=== PATIENT | female | born 1940 | race Caucasian/White ===

== ENCOUNTER 2017-07-26 21:02 | Inpatient (IN) | payer BC, MEDICAID ==
[2017-07-27] MEDS: ALBUTEROL 0.083% (NEB) 2.5 MG/3 ML AMP NEB (00:27)
[2017-07-27] MEDS: IPRATROPIUM (NEB) 0.5 MG/2.5 ML AMP NEB ×2 (00:27→03:36)
[2017-07-27 01:47] LABS: ADD UMIC YES; UR ASCORBIC ACID NEGATIVE (NEGATIVE); UR BACTERIA FEW /HPF (NONE SEEN); UR BILIRUBIN (Dip) NEGATIVE (NEGATIVE); UR BLOOD (Dip) NEGATIVE (NEGATIVE); UR CLARITY CLOUDY (CLEAR); UR COLOR AMBER (YELLOW); UR GLUCOSE (Dip) NEGATIVE (NEGATIVE); UR HYALINE CAST FEW /HPF (NONE SEEN); UR KETONES (Dip) TRACE mg/dL (NEGATIVE); UR LEUKOCYTE ESTERASE (Dip) 2+ Leu/ul (NEGATIVE); UR NITRITE (Dip) NEGATIVE (NEGATIVE); UR NONSQUAMOUS EPITHELIAL CELL 2 /HPF (NONE SEEN); UR RBC 7 /HPF (0-5); UR SPECIFIC GRAVITY (Dip) 1.026 (1.003-1.030); UR SQUAMOUS EPITHELIAL CELL MODERATE /HPF (FEW); UR TOTAL PROTEIN (Dip) 2+ mg/dl (NEGATIVE); UR UROBILINOGEN (Dip) 2+ mg/dL (NEGATIVE); UR WBC 8 /HPF (0-5)
[2017-07-27 02:05] LABS: ADD MAN DIFF? NO
[2017-07-27 02:07] LABS: WHITE BLOOD COUNT 5.5 10^3/ul (4.8-10.8)
[2017-07-27 02:07] LABS: BASOPHILS % 0.2 % (0.0-2.0); EOSINOPHILS # 0.1 10^3/ul (0.0-0.5); EOSINOPHILS % 1.5 % (0.0-7.0); HEMATOCRIT 37.9 % (37.0-47.0); HEMOGLOBIN 12.5 g/dl (12.0-16.0); LYMPHOCYTES # 2.6 10^3/ul (0.8-2.9); LYMPHOCYTES % 48.4 % (15.0-51.0); MEAN CORPUSCULAR HEMOGLOBIN 29.7 pg (29.0-33.0); MEAN PLATELET VOLUME 11.5 fl (7.4-10.4); MONOCYTE # 0.7 10^3/ul (0.3-0.9); MONOCYTES % 11.9 % (0.0-11.0); NEUTROPHIL # 2.1 10^3/ul (1.6-7.5); NEUTROPHILS % 37.6 % (39.0-77.0); PLATELET COUNT 210 10^3/UL (140-415); RED BLOOD COUNT 4.21 10^6/ul (4.20-5.40); RED CELL DISTRIBUTION WIDTH 13.6 % (11.5-14.5)
[2017-07-27] MEDS: ONDANSETRON 4 MG INJ IV (02:13)
[2017-07-27 02:44] LABS: ALANINE AMINOTRANSFERASE 32 IU/L (13-69); ALBUMIN 4.3 g/dl (3.3-4.9); ALBUMIN/GLOBULIN RATIO 1.22; ALKALINE PHOSPHATASE 81 IU/L (42-121); ANION GAP 19 (8-16); ASPARTATE AMINO TRANSFERASE 32 IU/L (15-46); BLOOD UREA NITROGEN 26 mg/dl (7-20); CARBON DIOXIDE 25 mmol/L (21-31); CHLORIDE 103 mmol/L (97-110); CREATININE 1.26 mg/dl (0.44-1.00); GLUCOSE 161 mg/dl (70-220); LIPASE 148 U/L (23-300); POTASSIUM 3.6 mmol/L (3.5-5.1); SODIUM 143 mmol/L (135-144); TOTAL PROTEIN 7.8 g/dl (6.1-8.1)
[2017-07-27 02:56] LABS: B-TYPE NATRIURETIC PEPTIDE 213 PG/ML (0-450); TROPONIN-I 0.013 ng/ml (0.00-0.12)
[2017-07-27] MEDS: CEFTRIAXONE 1 GM/50 ML (PMX) 50 ML IVPB (03:23)
[2017-07-27] MEDS: ALBUTEROL 0.5% (NEB) 2.5 MG/0.5 ML AMP INH (03:35)
[2017-07-27] MEDS: GUAIFENESIN/DM 5ML CUP PO (03:55)
[2017-07-27] MEDS ORDERED: ACETAMINOPHEN 325 MG TAB PO ×2 (06:30→09:30)
[2017-07-27] MEDS ORDERED: ONDANSETRON 4 MG INJ IV ×2 (06:30→09:30)
[2017-07-27] MEDS ORDERED: morphine 2 MG INJ IV (09:30)
[2017-07-27] MEDS ORDERED: NACL 0.9% 3 ML SYG IV (09:30)
[2017-07-27] MEDS: LEVOFLOXACIN 500MG/D5W (PMX) 100 ML IVPB (09:30)
[2017-07-27] MEDS: METHYLPREDNISOLONE 125 MG INJ IV ×2 (11:02→20:24)
[2017-07-27] MEDS: traMADol 50 MG TAB PO (11:02)
[2017-07-27] MEDS: BENZONATATE 100 MG CAP PO (13:25)
[2017-07-27] MEDS: FUROSEMIDE 40 MG INJ IV (13:32)
[2017-07-27] MEDS: SUCRALFATE 1 GM TAB PO ×3 (16:47→21:04)
[2017-07-27] MEDS: GABAPENTIN 300 MG CAP PO (20:23)
[2017-07-27] MEDS: MOMETASONE 0.24 GM INHALER INH (20:24)
[2017-07-28 06:22] LABS: ADD MAN DIFF? NO
[2017-07-28 06:31] LABS: HEMATOCRIT 37.2 % (37.0-47.0); LYMPHOCYTES % 34.8 % (15.0-51.0); MEAN CORPUSCULAR HEMOGLOBIN 29.3 pg (29.0-33.0); MEAN CORPUSCULAR HGB CONC 32.3 g/dl (32.0-37.0); MEAN CORPUSCULAR VOLUME 90.7 fl (82.0-101.0); MEAN PLATELET VOLUME 11.1 fl (7.4-10.4); MONOCYTE # 0.2 10^3/ul (0.3-0.9); NEUTROPHIL # 1.7 10^3/ul (1.6-7.5); NEUTROPHILS % 56.9 % (39.0-77.0); PLATELET COUNT 185 10^3/UL (140-415); RED CELL DISTRIBUTION WIDTH 13.3 % (11.5-14.5)
[2017-07-28] MEDS: BENZONATATE 100 MG CAP PO ×2 (06:46→21:01)
[2017-07-28 07:13] LABS: ALANINE AMINOTRANSFERASE 22 IU/L (13-69); ALBUMIN 4.1 g/dl (3.3-4.9); ALBUMIN/GLOBULIN RATIO 1.36; ALKALINE PHOSPHATASE 64 IU/L (42-121); ANION GAP 19 (8-16); ASPARTATE AMINO TRANSFERASE 27 IU/L (15-46); BILIRUBIN,INDIRECT 0.1 mg/dl (0-1.1); BILIRUBIN,TOTAL 0.1 mg/dl (0.2-1.3); BLOOD UREA NITROGEN 34 mg/dl (7-20); CALCIUM 8.9 mg/dl (8.4-10.2); CARBON DIOXIDE 26 mmol/L (21-31); CHLORIDE 98 mmol/L (97-110); CREATININE 1.09 mg/dl (0.44-1.00); GLUCOSE 247 mg/dl (70-220); MAGNESIUM 1.9 mg/dl (1.7-2.5); PHOSPHORUS 4.3 mg/dl (2.5-4.9); POTASSIUM 4.4 mmol/L (3.5-5.1); SODIUM 139 mmol/L (135-144); TOTAL PROTEIN 7.1 g/dl (6.1-8.1)
[2017-07-28 08:07] LABS: HEMOGLOBIN A1C 7.5 % (0-5.9)
[2017-07-28] MEDS: MOMETASONE 0.24 GM INHALER INH (09:49)
[2017-07-28] MEDS: METHYLPREDNISOLONE 125 MG INJ IV ×2 (09:49→20:42)
[2017-07-28] MEDS: FUROSEMIDE 40 MG INJ IV (09:50)
[2017-07-28] MEDS: LINAGLIPTIN 5 MG TABLET PO (09:50)
[2017-07-28] MEDS: SUCRALFATE 1 GM TAB PO ×4 (09:50→20:42)
[2017-07-28] MEDS: GABAPENTIN 300 MG CAP PO ×2 (09:50→20:42)
[2017-07-28] MEDS: LEVOFLOXACIN 250MG/D5W (PMX) 50 ML IVPB (09:50)
[2017-07-28] MEDS: ASPIRIN (EC) 81 MG TAB PO (09:51)
[2017-07-28] MEDS: PANTOPRAZOLE (EC) 40 MG TAB PO (09:51)
[2017-07-28] MEDS: RIVAROXABAN 20 MG TABLET PO (10:45)
[2017-07-28] MEDS ORDERED: GLUCAGON 1 MG INJ IM (11:30)
[2017-07-28] MEDS ORDERED: DEXTROSE 50% 50 ML SYRINGE IV ×2 (11:30)
[2017-07-28] MEDS ORDERED: GLUCOSE GEL 15 GRAM TUBE BUCCAL (11:30)
[2017-07-28] MEDS ORDERED: GLUCOSE GEL 15 GRAM TUBE PO ×2 (11:30)
[2017-07-28] MEDS: INSULIN ASPART [NOVOLOG] 3 ML PEN SC ×5 (12:40→20:47)
[2017-07-28] MEDS: INSULIN GLARGINE [LANtus] 3 ML PEN SC (12:40)
[2017-07-28] MEDS: LACTULOSE 30ML CUP PO (20:41)
[2017-07-29] MEDS: ACCU-CHEK XX (02:00)
[2017-07-29] MEDS: INSULIN GLARGINE [LANtus] 3 ML PEN SC (08:06)
[2017-07-29] MEDS: INSULIN ASPART [NOVOLOG] 3 ML PEN SC ×7 (08:07→21:00)
[2017-07-29] MEDS: METHYLPREDNISOLONE 125 MG INJ IV ×2 (08:24→21:21)
[2017-07-29] MEDS: GABAPENTIN 300 MG CAP PO ×2 (08:25→21:21)
[2017-07-29] MEDS: SUCRALFATE 1 GM TAB PO ×4 (08:25→21:21)
[2017-07-29] MEDS: LINAGLIPTIN 5 MG TABLET PO (08:25)
[2017-07-29] MEDS: ASPIRIN (EC) 81 MG TAB PO (08:25)
[2017-07-29] MEDS: RIVAROXABAN 20 MG TABLET PO (08:25)
[2017-07-29] MEDS: FUROSEMIDE 40 MG INJ IV (08:25)
[2017-07-29] MEDS: PANTOPRAZOLE (EC) 40 MG TAB PO (08:25)
[2017-07-29] MEDS: MOMETASONE 0.24 GM INHALER INH (08:27)
[2017-07-29] MEDS: BENZONATATE 100 MG CAP PO (08:50)
[2017-07-29] MEDS: LEVOFLOXACIN 250MG/D5W (PMX) 50 ML IVPB (09:38)
[2017-07-29] MEDS: GUAIFENESIN/CODEINE 5ML CUP PO (15:53)
[2017-07-29] MEDS: GUAIFENESIN LA 600 MG TABSR PO ×2 (17:46→21:21)
[2017-07-29] MEDS: ALBUTEROL/IPRATROPIUM (NEB) 3 ML AMP HHN (21:15)
[2017-07-30] MEDS: ACCU-CHEK XX (01:11)
[2017-07-30] MEDS: GUAIFENESIN/CODEINE 5ML CUP PO ×2 (05:37→15:34)
[2017-07-30] MEDS: SUCRALFATE 1 GM TAB PO ×4 (08:16→21:27)
[2017-07-30] MEDS: BENZONATATE 100 MG CAP PO ×2 (08:16→17:30)
[2017-07-30] MEDS: FUROSEMIDE 40 MG INJ IV (08:16)
[2017-07-30] MEDS: RIVAROXABAN 20 MG TABLET PO (08:16)
[2017-07-30] MEDS: GABAPENTIN 300 MG CAP PO ×2 (08:16→21:27)
[2017-07-30] MEDS: PANTOPRAZOLE (EC) 40 MG TAB PO (08:16)
[2017-07-30] MEDS: LINAGLIPTIN 5 MG TABLET PO (08:17)
[2017-07-30] MEDS: MOMETASONE 0.24 GM INHALER INH (08:17)
[2017-07-30] MEDS: GUAIFENESIN LA 600 MG TABSR PO ×2 (08:17→21:27)
[2017-07-30] MEDS: ASPIRIN (EC) 81 MG TAB PO (08:17)
[2017-07-30] MEDS: METHYLPREDNISOLONE 125 MG INJ IV ×2 (08:17→21:27)
[2017-07-30] MEDS: INSULIN GLARGINE [LANtus] 3 ML PEN SC (08:41)
[2017-07-30] MEDS: INSULIN ASPART [NOVOLOG] 3 ML PEN SC ×7 (08:41→21:00)
[2017-07-30] MEDS: LEVOFLOXACIN 250MG/D5W (PMX) 50 ML IVPB (11:35)
[2017-07-30] MEDS: MAGNESIUM HYDROXIDE 30ML CUP PO (15:34)
[2017-07-30] MEDS: SENNA TAB PO (15:34)
[2017-07-30] MEDS: ERTAPENEM SODIUM 1 GM in SOD CHLORIDE 0.9% 100 ML IVPB (15:34)
[2017-07-30] MEDS: FLUCONAZOLE 200 MG TAB PO (15:34)
[2017-07-30] MEDS: DOCUSATE SODIUM 100 MG CAP PO (15:34)
[2017-07-30] MEDS: HEPARIN 5,000 UNIT/0.5 ML VIAL SC (21:36)
[2017-07-31] MEDS: ACCU-CHEK XX (01:57)
[2017-07-31] MEDS: FLUCONAZOLE 200 MG TAB PO (08:33)
[2017-07-31] MEDS: SUCRALFATE 1 GM TAB PO ×4 (08:33→20:39)
[2017-07-31] MEDS: LINAGLIPTIN 5 MG TABLET PO (08:33)
[2017-07-31] MEDS: DOCUSATE SODIUM 100 MG CAP PO ×2 (08:33→20:39)
[2017-07-31] MEDS: GABAPENTIN 300 MG CAP PO ×2 (08:33→20:39)
[2017-07-31] MEDS: SENNA TAB PO ×2 (08:33→20:40)
[2017-07-31] MEDS: GUAIFENESIN LA 600 MG TABSR PO ×2 (08:33→20:40)
[2017-07-31] MEDS: PANTOPRAZOLE (EC) 40 MG TAB PO (08:33)
[2017-07-31] MEDS: ASPIRIN (EC) 81 MG TAB PO (08:33)
[2017-07-31] MEDS: METHYLPREDNISOLONE 125 MG INJ IV ×2 (08:34→20:41)
[2017-07-31] MEDS: MOMETASONE 0.24 GM INHALER INH (08:35)
[2017-07-31] MEDS: FUROSEMIDE 40 MG INJ IV (08:35)
[2017-07-31] MEDS: HEPARIN 5,000 UNIT/0.5 ML VIAL SC ×2 (08:37→20:54)
[2017-07-31] MEDS: INSULIN GLARGINE [LANtus] 3 ML PEN SC (08:37)
[2017-07-31] MEDS: INSULIN ASPART [NOVOLOG] 3 ML PEN SC ×7 (08:38→20:46)
[2017-07-31] MEDS: ERTAPENEM SODIUM 1 GM in SOD CHLORIDE 0.9% 100 ML IVPB (16:52)
[2017-08-01] MEDS: ACCU-CHEK XX (02:12)
[2017-08-01] MEDS: INSULIN ASPART [NOVOLOG] 3 ML PEN SC ×7 (07:58→20:43)
[2017-08-01] MEDS: INSULIN GLARGINE [LANtus] 3 ML PEN SC (07:59)
[2017-08-01] MEDS: FUROSEMIDE 40 MG INJ IV (09:51)
[2017-08-01] MEDS: METHYLPREDNISOLONE 125 MG INJ IV ×2 (09:52→20:39)
[2017-08-01] MEDS: PANTOPRAZOLE (EC) 40 MG TAB PO (09:53)
[2017-08-01] MEDS: GUAIFENESIN LA 600 MG TABSR PO ×2 (09:53→20:44)
[2017-08-01] MEDS: SUCRALFATE 1 GM TAB PO ×4 (09:53→20:44)
[2017-08-01] MEDS: ASPIRIN (EC) 81 MG TAB PO (09:53)
[2017-08-01] MEDS: DOCUSATE SODIUM 100 MG CAP PO ×2 (09:53→20:44)
[2017-08-01] MEDS: GABAPENTIN 300 MG CAP PO ×2 (09:53→20:39)
[2017-08-01] MEDS: SENNA TAB PO ×2 (09:54→20:43)
[2017-08-01] MEDS: FLUCONAZOLE 200 MG TAB PO (09:54)
[2017-08-01] MEDS: LINAGLIPTIN 5 MG TABLET PO (09:54)
[2017-08-01] MEDS: MOMETASONE 0.24 GM INHALER INH (09:55)
[2017-08-01] MEDS: HEPARIN 5,000 UNIT/0.5 ML VIAL SC ×3 (10:06→21:44)
[2017-08-01] MEDS: AZITHROMYCIN 250 MG TAB PO (14:52)
[2017-08-01] MEDS: ERTAPENEM SODIUM 1 GM in SOD CHLORIDE 0.9% 100 ML IVPB (15:58)
[2017-08-01] MEDS: NPH, HUMAN INSULIN ISOPHANE 3ML VIAL SC (20:41)
[2017-08-02] MEDS: ACCU-CHEK XX (01:30)
[2017-08-02] MEDS: HEPARIN 5,000 UNIT/0.5 ML VIAL SC ×3 (05:44→21:06)
[2017-08-02 06:02] LABS: ADD MAN DIFF? NO
[2017-08-02 06:06] LABS: WHITE BLOOD COUNT 11.9 10^3/ul (4.8-10.8)
[2017-08-02 06:06] LABS: BASOPHILS % 0.1 % (0.0-2.0); HEMATOCRIT 39.5 % (37.0-47.0); LYMPHOCYTES # 1.2 10^3/ul (0.8-2.9); LYMPHOCYTES % 10.1 % (15.0-51.0); MEAN CORPUSCULAR HEMOGLOBIN 29.5 pg (29.0-33.0); MEAN CORPUSCULAR HGB CONC 32.9 g/dl (32.0-37.0); MEAN CORPUSCULAR VOLUME 89.6 fl (82.0-101.0); MEAN PLATELET VOLUME 10.7 fl (7.4-10.4); MONOCYTE # 0.4 10^3/ul (0.3-0.9); MONOCYTES % 3.4 % (0.0-11.0); NEUTROPHIL # 10.2 10^3/ul (1.6-7.5); NEUTROPHILS % 85.6 % (39.0-77.0); PLATELET COUNT 269 10^3/UL (140-415); RED BLOOD COUNT 4.41 10^6/ul (4.20-5.40); RED CELL DISTRIBUTION WIDTH 12.9 % (11.5-14.5)
[2017-08-02 06:32] LABS: CHOLESTEROL 195 mg/dl (100-200); HDL CHOLESTEROL 64 mg/dl (33-92); LDL CHOLESTEROL,CALCULATED 109 mg/dl; MAGNESIUM 2.5 mg/dl (1.7-2.5); TRIGLYCERIDES 111 mg/dl (0-149)
[2017-08-02 06:32] LABS: PHOSPHORUS 4.4 mg/dl (2.5-4.9)
[2017-08-02 06:33] LABS: ANION GAP 13 (8-16); BLOOD UREA NITROGEN 54 mg/dl (7-20); CALCIUM 8.3 mg/dl (8.4-10.2); CARBON DIOXIDE 32 mmol/L (21-31); CHLORIDE 96 mmol/L (97-110); CREATININE 1.02 mg/dl (0.44-1.00); GLUCOSE 211 mg/dl (70-220); POTASSIUM 4.2 mmol/L (3.5-5.1); SODIUM 137 mmol/L (135-144)
[2017-08-02] MEDS: SUCRALFATE 1 GM TAB PO ×4 (07:50→21:04)
[2017-08-02] MEDS: INSULIN GLARGINE [LANtus] 3 ML PEN SC (07:59)
[2017-08-02] MEDS: INSULIN ASPART [NOVOLOG] 3 ML PEN SC ×7 (07:59→21:11)
[2017-08-02] MEDS: METHYLPREDNISOLONE 125 MG INJ IV (09:46)
[2017-08-02] MEDS: SENNA TAB PO ×2 (09:46→21:04)
[2017-08-02] MEDS: PANTOPRAZOLE (EC) 40 MG TAB PO (09:47)
[2017-08-02] MEDS: DOCUSATE SODIUM 100 MG CAP PO ×2 (09:47→21:04)
[2017-08-02] MEDS: AZITHROMYCIN 250 MG TAB PO (09:47)
[2017-08-02] MEDS: FLUCONAZOLE 200 MG TAB PO (09:47)
[2017-08-02] MEDS: GABAPENTIN 300 MG CAP PO ×2 (09:48→21:04)
[2017-08-02] MEDS: LINAGLIPTIN 5 MG TABLET PO (09:48)
[2017-08-02] MEDS: GUAIFENESIN LA 600 MG TABSR PO ×2 (09:48→21:03)
[2017-08-02] MEDS: ASPIRIN (EC) 81 MG TAB PO (09:48)
[2017-08-02] MEDS: NPH, HUMAN INSULIN ISOPHANE 3ML VIAL SC ×2 (09:52→21:10)
[2017-08-02] MEDS: MOMETASONE 0.24 GM INHALER INH (09:58)
[2017-08-02] MEDS: FUROSEMIDE 20 MG TAB PO (12:11)
[2017-08-02] MEDS: ERTAPENEM SODIUM 1 GM in SOD CHLORIDE 0.9% 100 ML IVPB (16:59)
[2017-08-02] MEDS: METHYLPREDNISOLONE 40 MG INJ IV (21:05)
[2017-08-03] MEDS: ACCU-CHEK XX (02:53)
[2017-08-03 05:32] LABS: ADD MAN DIFF? NO
[2017-08-03 05:37] LABS: BASOPHILS % 0.1 % (0.0-2.0); HEMATOCRIT 40.4 % (37.0-47.0); HEMOGLOBIN 13.1 g/dl (12.0-16.0); LYMPHOCYTES # 1.4 10^3/ul (0.8-2.9); LYMPHOCYTES % 10.4 % (15.0-51.0); MEAN CORPUSCULAR HEMOGLOBIN 29.2 pg (29.0-33.0); MEAN CORPUSCULAR HGB CONC 32.4 g/dl (32.0-37.0); MEAN CORPUSCULAR VOLUME 90.2 fl (82.0-101.0); MEAN PLATELET VOLUME 10.5 fl (7.4-10.4); MONOCYTE # 0.4 10^3/ul (0.3-0.9); NEUTROPHIL # 11.3 10^3/ul (1.6-7.5); NEUTROPHILS % 85.4 % (39.0-77.0); PLATELET COUNT 293 10^3/UL (140-415); RED BLOOD COUNT 4.48 10^6/ul (4.20-5.40); RED CELL DISTRIBUTION WIDTH 12.9 % (11.5-14.5)
[2017-08-03 05:37] LABS: WHITE BLOOD COUNT 13.3 10^3/ul (4.8-10.8)
[2017-08-03] MEDS: HEPARIN 5,000 UNIT/0.5 ML VIAL SC ×3 (06:05→21:36)
[2017-08-03 06:08] LABS: ANION GAP 9 (8-16); BLOOD UREA NITROGEN 50 mg/dl (7-20); CALCIUM 8.8 mg/dl (8.4-10.2); CARBON DIOXIDE 33 mmol/L (21-31); CHLORIDE 98 mmol/L (97-110); GLUCOSE 158 mg/dl (70-220); MAGNESIUM 2.6 mg/dl (1.7-2.5); POTASSIUM 4.4 mmol/L (3.5-5.1); SODIUM 136 mmol/L (135-144)
[2017-08-03 06:08] LABS: PHOSPHORUS 4.3 mg/dl (2.5-4.9)
[2017-08-03] MEDS: INSULIN ASPART [NOVOLOG] 3 ML PEN SC ×7 (07:59→21:35)
[2017-08-03] MEDS: INSULIN GLARGINE [LANtus] 3 ML PEN SC (08:05)
[2017-08-03] MEDS: GABAPENTIN 300 MG CAP PO ×2 (09:42→21:27)
[2017-08-03] MEDS: FUROSEMIDE 20 MG TAB PO (09:43)
[2017-08-03] MEDS: PANTOPRAZOLE (EC) 40 MG TAB PO (09:43)
[2017-08-03] MEDS: ASPIRIN (EC) 81 MG TAB PO (09:43)
[2017-08-03] MEDS: GUAIFENESIN LA 600 MG TABSR PO ×2 (09:45→21:27)
[2017-08-03] MEDS: SENNA TAB PO ×2 (09:45→21:27)
[2017-08-03] MEDS: AZITHROMYCIN 250 MG TAB PO (09:45)
[2017-08-03] MEDS: SUCRALFATE 1 GM TAB PO ×4 (09:46→21:27)
[2017-08-03] MEDS: LINAGLIPTIN 5 MG TABLET PO (09:46)
[2017-08-03] MEDS: FLUCONAZOLE 200 MG TAB PO (09:46)
[2017-08-03] MEDS: DOCUSATE SODIUM 100 MG CAP PO ×2 (09:46→21:27)
[2017-08-03] MEDS: METHYLPREDNISOLONE 40 MG INJ IV ×2 (09:47→21:27)
[2017-08-03] MEDS: MOMETASONE 0.24 GM INHALER INH (09:47)
[2017-08-03] MEDS: NPH, HUMAN INSULIN ISOPHANE 3ML VIAL SC ×2 (10:06→21:35)
[2017-08-03] MEDS: LISINOPRIL 5 MG TAB PO (11:17)
[2017-08-03] MEDS: ACETYLCYSTEINE 20% 4 ML VIAL NEB ×2 (14:08→20:22)
[2017-08-03] MEDS: ALBUTEROL/IPRATROPIUM (NEB) 3 ML AMP HHN ×2 (14:08→20:21)
[2017-08-03] MEDS: SOD CHLORIDE 0.9% IVPB (16:30)
[2017-08-03] MEDS: ERTAPENEM SODIUM IVPB (16:30)
[2017-08-04] MEDS: ACETYLCYSTEINE 20% 4 ML VIAL NEB ×4 (01:05→19:47)
[2017-08-04] MEDS: ALBUTEROL/IPRATROPIUM (NEB) 3 ML AMP HHN ×4 (01:05→19:47)
[2017-08-04] MEDS: ACCU-CHEK XX (02:00)
[2017-08-04 06:01] LABS: ADD MAN DIFF? NO
[2017-08-04] MEDS: HEPARIN 5,000 UNIT/0.5 ML VIAL SC ×3 (06:06→21:16)
[2017-08-04 06:12] LABS: WHITE BLOOD COUNT 13.2 10^3/ul (4.8-10.8)
[2017-08-04 06:12] LABS: BASOPHILS % 0.2 % (0.0-2.0); HEMOGLOBIN 11.9 g/dl (12.0-16.0); LYMPHOCYTES # 0.7 10^3/ul (0.8-2.9); LYMPHOCYTES % 5.4 % (15.0-51.0); MEAN CORPUSCULAR HEMOGLOBIN 29.6 pg (29.0-33.0); MEAN CORPUSCULAR HGB CONC 33.1 g/dl (32.0-37.0); MEAN CORPUSCULAR VOLUME 89.6 fl (82.0-101.0); MEAN PLATELET VOLUME 10.6 fl (7.4-10.4); MONOCYTE # 0.4 10^3/ul (0.3-0.9); MONOCYTES % 2.8 % (0.0-11.0); NEUTROPHIL # 11.9 10^3/ul (1.6-7.5); NEUTROPHILS % 89.8 % (39.0-77.0); PLATELET COUNT 264 10^3/UL (140-415); RED BLOOD COUNT 4.02 10^6/ul (4.20-5.40); RED CELL DISTRIBUTION WIDTH 13.2 % (11.5-14.5)
[2017-08-04 06:35] LABS: ANION GAP 12 (8-16); BLOOD UREA NITROGEN 45 mg/dl (7-20); CARBON DIOXIDE 29 mmol/L (21-31); CHLORIDE 97 mmol/L (97-110); CREATININE 0.99 mg/dl (0.44-1.00); GLUCOSE 301 mg/dl (70-220); POTASSIUM 4.3 mmol/L (3.5-5.1); SODIUM 134 mmol/L (135-144)
[2017-08-04 06:48] LABS: MAGNESIUM 2.5 mg/dl (1.7-2.5)
[2017-08-04 06:48] LABS: PHOSPHORUS 4.3 mg/dl (2.5-4.9)
[2017-08-04] MEDS: SUCRALFATE 1 GM TAB PO ×4 (08:00→21:14)
[2017-08-04] MEDS: MOMETASONE 0.24 GM INHALER INH (08:02)
[2017-08-04] MEDS: INSULIN ASPART [NOVOLOG] 3 ML PEN SC ×8 (08:18→21:16)
[2017-08-04] MEDS: INSULIN GLARGINE [LANtus] 3 ML PEN SC (08:19)
[2017-08-04] MEDS: DOCUSATE SODIUM 100 MG CAP PO ×2 (09:41→21:14)
[2017-08-04] MEDS: PANTOPRAZOLE (EC) 40 MG TAB PO (09:42)
[2017-08-04] MEDS: ASPIRIN (EC) 81 MG TAB PO (09:42)
[2017-08-04] MEDS: LINAGLIPTIN 5 MG TABLET PO (09:42)
[2017-08-04] MEDS: LISINOPRIL 5 MG TAB PO (09:42)
[2017-08-04] MEDS: FUROSEMIDE 20 MG TAB PO (09:43)
[2017-08-04] MEDS: FLUCONAZOLE 200 MG TAB PO (09:43)
[2017-08-04] MEDS: GUAIFENESIN LA 600 MG TABSR PO ×2 (09:43→21:15)
[2017-08-04] MEDS: SENNA TAB PO ×2 (09:44→21:15)
[2017-08-04] MEDS: AZITHROMYCIN 250 MG TAB PO (09:44)
[2017-08-04] MEDS: GABAPENTIN 300 MG CAP PO ×2 (09:44→21:14)
[2017-08-04] MEDS: METHYLPREDNISOLONE 40 MG INJ IV (09:47)
[2017-08-04] MEDS: NPH, HUMAN INSULIN ISOPHANE 3ML VIAL SC (09:47)
[2017-08-04] MEDS: ERTAPENEM SODIUM IVPB (16:08)
[2017-08-04] MEDS: SOD CHLORIDE 0.9% IVPB (16:08)
[2017-08-04] MEDS: metFORMIN 850 MG TAB PO (21:57)
[2017-08-05] MEDS: ACETYLCYSTEINE 20% 4 ML VIAL NEB ×3 (01:31→13:56)
[2017-08-05] MEDS: ALBUTEROL/IPRATROPIUM (NEB) 3 ML AMP HHN ×3 (01:32→13:44)
[2017-08-05] MEDS: ACCU-CHEK XX (02:00)
[2017-08-05] MEDS: HEPARIN 5,000 UNIT/0.5 ML VIAL SC ×2 (05:46→14:09)
[2017-08-05 05:53] LABS: ADD MAN DIFF? NO
[2017-08-05 05:55] LABS: BASOPHILS % 0.2 % (0.0-2.0); EOSINOPHILS # 0.1 10^3/ul (0.0-0.5); EOSINOPHILS % 0.4 % (0.0-7.0); HEMATOCRIT 34.8 % (37.0-47.0); HEMOGLOBIN 11.5 g/dl (12.0-16.0); LYMPHOCYTES # 3.2 10^3/ul (0.8-2.9); LYMPHOCYTES % 22.7 % (15.0-51.0); MEAN CORPUSCULAR HEMOGLOBIN 29.6 pg (29.0-33.0); MEAN CORPUSCULAR VOLUME 89.7 fl (82.0-101.0); MEAN PLATELET VOLUME 10.4 fl (7.4-10.4); MONOCYTE # 1.1 10^3/ul (0.3-0.9); MONOCYTES % 7.7 % (0.0-11.0); NEUTROPHIL # 9.4 10^3/ul (1.6-7.5); NEUTROPHILS % 66.3 % (39.0-77.0); PLATELET COUNT 262 10^3/UL (140-415); RED BLOOD COUNT 3.88 10^6/ul (4.20-5.40); RED CELL DISTRIBUTION WIDTH 13.2 % (11.5-14.5)
[2017-08-05 05:55] LABS: WHITE BLOOD COUNT 14.2 10^3/ul (4.8-10.8)
[2017-08-05 06:23] LABS: ANION GAP 8 (8-16); BLOOD UREA NITROGEN 44 mg/dl (7-20); CALCIUM 8.5 mg/dl (8.4-10.2); CARBON DIOXIDE 34 mmol/L (21-31); CHLORIDE 99 mmol/L (97-110); CREATININE 0.95 mg/dl (0.44-1.00); GLUCOSE 76 mg/dl (70-220); POTASSIUM 3.7 mmol/L (3.5-5.1); SODIUM 137 mmol/L (135-144)
[2017-08-05 06:51] LABS: MAGNESIUM 2.3 mg/dl (1.7-2.5)
[2017-08-05 06:51] LABS: PHOSPHORUS 3.6 mg/dl (2.5-4.9)
[2017-08-05] MEDS: INSULIN ASPART [NOVOLOG] 3 ML PEN SC ×6 (07:44→17:43)
[2017-08-05] MEDS: GUAIFENESIN/CODEINE 5ML CUP PO (07:54)
[2017-08-05] MEDS: GABAPENTIN 300 MG CAP PO (08:08)
[2017-08-05] MEDS: predniSONE 20 MG TAB PO (08:08)
[2017-08-05] MEDS: SUCRALFATE 1 GM TAB PO ×3 (08:08→17:38)
[2017-08-05] MEDS: LISINOPRIL 5 MG TAB PO (08:08)
[2017-08-05] MEDS: FUROSEMIDE 20 MG TAB PO (08:08)
[2017-08-05] MEDS: GUAIFENESIN LA 600 MG TABSR PO (08:09)
[2017-08-05] MEDS: FLUCONAZOLE 200 MG TAB PO (08:09)
[2017-08-05] MEDS: metFORMIN 850 MG TAB PO ×2 (08:09→17:38)
[2017-08-05] MEDS: SENNA TAB PO (08:10)
[2017-08-05] MEDS: DOCUSATE SODIUM 100 MG CAP PO (08:10)
[2017-08-05] MEDS: LINAGLIPTIN 5 MG TABLET PO (08:10)
[2017-08-05] MEDS: PANTOPRAZOLE (EC) 40 MG TAB PO (08:10)
[2017-08-05] MEDS: AZITHROMYCIN 250 MG TAB PO (08:10)
[2017-08-05] MEDS: ASPIRIN (EC) 81 MG TAB PO (08:10)
[2017-08-05] MEDS: MOMETASONE 0.24 GM INHALER INH (08:11)
[2017-08-05] MEDS: INSULIN GLARGINE [LANtus] 3 ML PEN SC (08:17)
[2017-08-05] MEDS: BISACODYL (EC) 5 MG TAB PO (14:06)
[2017-08-05] MEDS: traMADol 50 MG TAB PO (15:57)
[2017-08-05] MEDS: MAGNESIUM HYDROXIDE 30ML CUP PO (15:59)
[2017-08-05] MEDS: ERTAPENEM SODIUM IVPB (17:40)
[2017-08-05] MEDS: SOD CHLORIDE 0.9% IVPB (17:40)
== END 2017-08-05 19:25 | disposition home or self-care (01) | DRG 202 ==
LOC: MS2 07-27 06:11 → FTE 21:02
PROC: CB121ZZ Planar Nuclear Medicine Imaging of Lungs and Bronchi using Technetium 99m (Tc-99m) (ICD-10-PCS; principal; 2017-07-27)
DX: J45.901 Unspecified asthma with (acute) exacerbation (principal); J96.01 Acute respiratory failure with hypoxia; N17.9 Acute kidney failure, unspecified; J90 Pleural effusion, not elsewhere classified; N39.0 Urinary tract infection, site not specified; R65.10 Systemic inflammatory response syndrome (SIRS) of non-infectious origin without acute organ dysfunction; E11.9 Type 2 diabetes mellitus without complications; I10 Essential (primary) hypertension; B37.49 Other urogenital candidiasis; Z86.711 Personal history of pulmonary embolism; Z86.718 Personal history of other venous thrombosis and embolism; Z79.01 Long term (current) use of anticoagulants; B96.20 Unspecified Escherichia coli [E. coli] as the cause of diseases classified elsewhere
CPT/HCPCS: 36415; 71045; 74176; 80048; 80053; 80061; 81001; 82962; 83036; 83690; 83735; 83880; 84100; 84484; 85025; 87040; 87070; 87086; 87400; 93005; 93970; 94640; 94664; 96365; 96375; 96376; 97110; 97116; 97162; 97530; 99285-25

== ENCOUNTER 2017-10-21 18:41 | Emergency (ER) | payer BC, MEDICAID ==
[2017-10-21] MEDS: SOD CHLORIDE 0.9% 500 ML IV (20:49)
[2017-10-21] MEDS: ALBUTEROL 0.083% (NEB) 2.5 MG/3 ML AMP NEB (20:57)
[2017-10-21] MEDS: IPRATROPIUM (NEB) 0.5 MG/2.5 ML AMP NEB (20:57)
[2017-10-21 21:08] LABS: ADD MAN DIFF? NO
[2017-10-21 21:10] LABS: BASOPHILS % 0.3 % (0.0-2.0); EOSINOPHILS # 0.2 10^3/ul (0.0-0.5); EOSINOPHILS % 2.3 % (0.0-7.0); HEMATOCRIT 35.8 % (37.0-47.0); HEMOGLOBIN 11.8 g/dl (12.0-16.0); LYMPHOCYTES # 2.5 10^3/ul (0.8-2.9); LYMPHOCYTES % 26.1 % (15.0-51.0); MEAN CORPUSCULAR HEMOGLOBIN 29.6 pg (29.0-33.0); MEAN CORPUSCULAR VOLUME 89.7 fl (82.0-101.0); MEAN PLATELET VOLUME 10.3 fl (7.4-10.4); MONOCYTE # 0.8 10^3/ul (0.3-0.9); MONOCYTES % 8.2 % (0.0-11.0); NEUTROPHILS % 62.5 % (39.0-77.0); PLATELET COUNT 257 10^3/UL (140-415); RED BLOOD COUNT 3.99 10^6/ul (4.20-5.40); RED CELL DISTRIBUTION WIDTH 13.3 % (11.5-14.5)
[2017-10-21 21:10] LABS: WHITE BLOOD COUNT 9.6 10^3/ul (4.8-10.8)
[2017-10-21 21:26] LABS: ADD UMIC YES; UR ASCORBIC ACID NEGATIVE (NEGATIVE); UR BILIRUBIN (Dip) NEGATIVE (NEGATIVE); UR BLOOD (Dip) NEGATIVE (NEGATIVE); UR CLARITY CLEAR (CLEAR); UR COLOR YELLOW (YELLOW); UR GLUCOSE (Dip) NEGATIVE (NEGATIVE); UR KETONES (Dip) NEGATIVE (NEGATIVE); UR LEUKOCYTE ESTERASE (Dip) 1+ Leu/ul (NEGATIVE); UR NITRITE (Dip) NEGATIVE (NEGATIVE); UR RBC 1 /HPF (0-5); UR SPECIFIC GRAVITY (Dip) 1.028 (1.003-1.030); UR SQUAMOUS EPITHELIAL CELL FEW /HPF (FEW); UR TOTAL PROTEIN (Dip) 1+ mg/dl (NEGATIVE); UR UROBILINOGEN (Dip) 1+ mg/dL (NEGATIVE); UR WBC 1 /HPF (0-5)
[2017-10-21 21:28] LABS: ANION GAP 17 (8-16); BLOOD UREA NITROGEN 29 mg/dl (7-20); CARBON DIOXIDE 28 mmol/L (21-31); CHLORIDE 102 mmol/L (97-110); GLUCOSE 135 mg/dl (70-220); SODIUM 143 mmol/L (135-144)
[2017-10-22] MEDS: AZITHROMYCIN 250 MG TAB PO (00:30)
[2017-10-22] MEDS: DEXAMETHASONE 10 MG/ML 1 ML INJ IV (00:30)
== END 2017-10-22 00:45 | disposition home or self-care (01) ==
LOC: FTE 10-22 00:45
DX: J45.901 Unspecified asthma with (acute) exacerbation (principal); I10 Essential (primary) hypertension; E11.9 Type 2 diabetes mellitus without complications; Z87.891 Personal history of nicotine dependence; Z79.82 Long term (current) use of aspirin; Z79.84 Long term (current) use of oral hypoglycemic drugs
CPT/HCPCS: 36415; 71046; 80048; 81001; 85025; 93005; 94664; 96361; 96374; 99285-25

== ENCOUNTER 2017-10-29 10:00 | Emergency (ER) | payer BC, MEDICAID ==
[2017-10-29 12:17] LABS: ADD MAN DIFF? NO
[2017-10-29 12:19] LABS: BASOPHILS % 0.2 % (0.0-2.0); EOSINOPHILS # 0.3 10^3/ul (0.0-0.5); HEMATOCRIT 36.7 % (37.0-47.0); HEMOGLOBIN 12.3 g/dl (12.0-16.0); LYMPHOCYTES # 2.8 10^3/ul (0.8-2.9); LYMPHOCYTES % 20.8 % (15.0-51.0); MEAN CORPUSCULAR HEMOGLOBIN 29.6 pg (29.0-33.0); MEAN CORPUSCULAR HGB CONC 33.5 g/dl (32.0-37.0); MEAN CORPUSCULAR VOLUME 88.2 fl (82.0-101.0); MEAN PLATELET VOLUME 9.7 fl (7.4-10.4); MONOCYTE # 0.7 10^3/ul (0.3-0.9); MONOCYTES % 5.5 % (0.0-11.0); NEUTROPHIL # 9.3 10^3/ul (1.6-7.5); NEUTROPHILS % 70.1 % (39.0-77.0); PLATELET COUNT 354 10^3/UL (140-415); RED BLOOD COUNT 4.16 10^6/ul (4.20-5.40); RED CELL DISTRIBUTION WIDTH 13.4 % (11.5-14.5)
[2017-10-29 12:19] LABS: WHITE BLOOD COUNT 13.2 10^3/ul (4.8-10.8)
[2017-10-29] MEDS: IPRATROPIUM (NEB) 0.5 MG/2.5 ML AMP INH (12:21)
[2017-10-29] MEDS: ALBUTEROL 0.083% (NEB) 2.5 MG/3 ML AMP INH (12:21)
[2017-10-29 12:36] LABS: ALANINE AMINOTRANSFERASE 17 IU/L (13-69); ALBUMIN 4.1 g/dl (3.3-4.9); ALBUMIN/GLOBULIN RATIO 1.28; ALKALINE PHOSPHATASE 51 IU/L (42-121); ANION GAP 17 (8-16); ASPARTATE AMINO TRANSFERASE 20 IU/L (15-46); BILIRUBIN,INDIRECT 0.2 mg/dl (0-1.1); BILIRUBIN,TOTAL 0.2 mg/dl (0.2-1.3); BLOOD UREA NITROGEN 25 mg/dl (7-20); CALCIUM 9.4 mg/dl (8.4-10.2); CARBON DIOXIDE 29 mmol/L (21-31); CHLORIDE 102 mmol/L (97-110); CREATINE KINASE 41 IU/L (23-200); CREATININE 1.02 mg/dl (0.44-1.00); GLUCOSE 155 mg/dl (70-220); POTASSIUM 3.9 mmol/L (3.5-5.1); SODIUM 144 mmol/L (135-144); TOTAL PROTEIN 7.3 g/dl (6.1-8.1)
[2017-10-29 12:38] LABS: INR 1.06; PROTIME 13.9 Sec (11.9-14.9); PT RATIO 1.1
[2017-10-29 12:48] LABS: B-TYPE NATRIURETIC PEPTIDE 151 PG/ML (0-450); CK INDEX 1.7; CK-MB 0.71 ng/ml (0.0-2.4)
[2017-10-29 12:51] LABS: TROPONIN-I < 0.012 ng/ml (0.00-0.12)
[2017-10-29] MEDS: SOD CHLORIDE 0.9% 100 ML (13:22)
[2017-10-29] MEDS: IOHEXOL 100 ML (13:22)
[2017-10-29] MEDS: METHYLPREDNISOLONE 125 MG INJ IV (15:38)
[2017-10-29] MEDS: ALBUTEROL 0.083% (NEB) 2.5 MG/3 ML AMP NEB (15:39)
[2017-10-29] MEDS: IPRATROPIUM (NEB) 0.5 MG/2.5 ML AMP NEB (15:39)
== END 2017-10-29 16:24 | disposition home or self-care (01) ==
LOC: FTE 16:24
DX: J44.1 Chronic obstructive pulmonary disease with (acute) exacerbation (principal); I10 Essential (primary) hypertension; E11.9 Type 2 diabetes mellitus without complications; J45.901 Unspecified asthma with (acute) exacerbation; Z79.82 Long term (current) use of aspirin; Z79.84 Long term (current) use of oral hypoglycemic drugs
CPT/HCPCS: 36415; 71275; 80053; 82550; 82553; 83880; 84484; 85025; 85610; 85730; 93005; 94640; 94664; 96374; 99285-25

== ENCOUNTER 2018-12-10 08:24 | Emergency (ER) | payer BC, MEDICAID ==
[2018-12-10] MEDS: HYDROCODONE/APAP (5/325) TAB PO (08:53)
[2018-12-10 09:24] LABS: ADD MAN DIFF? NO
[2018-12-10 09:30] LABS: BASOPHILS % 0.6 % (0.0-2.0); EOSINOPHILS # 0.4 10^3/ul (0.0-0.5); EOSINOPHILS % 8.4 % (0.0-7.0); LYMPHOCYTES # 2.4 10^3/ul (0.8-2.9); MEAN CORPUSCULAR HEMOGLOBIN 27.8 pg (29.0-33.0); MEAN CORPUSCULAR HGB CONC 31.4 g/dl (32.0-37.0); MEAN CORPUSCULAR VOLUME 88.6 fl (82.0-101.0); MEAN PLATELET VOLUME 10.8 fl (7.4-10.4); MONOCYTE # 0.5 10^3/ul (0.3-0.9); NEUTROPHIL # 1.9 10^3/ul (1.6-7.5); NEUTROPHILS % 35.8 % (39.0-77.0); PLATELET COUNT 254 10^3/UL (140-415); RED BLOOD COUNT 3.95 10^6/ul (4.20-5.40); RED CELL DISTRIBUTION WIDTH 14.5 % (11.5-14.5)
[2018-12-10 09:30] LABS: WHITE BLOOD COUNT 5.2 10^3/ul (4.8-10.8)
[2018-12-10 09:51] LABS: ANION GAP 6 (5-13); BLOOD UREA NITROGEN 26 mg/dl (7-20); CALCIUM 9.3 mg/dl (8.4-10.2); CARBON DIOXIDE 30 mmol/L (21-31); CHLORIDE 102 mmol/L (97-110); CREATININE 1.16 mg/dl (0.44-1.00); GLUCOSE 109 mg/dl (70-220); POTASSIUM 4.1 mmol/L (3.5-5.1); SODIUM 138 mmol/L (135-144)
[2018-12-10 10:27] LABS: TROPONIN-I < 0.012 ng/ml (0.000-0.120)
== END 2018-12-10 11:07 | disposition home or self-care (01) ==
LOC: E/R 08:24
DX: S16.1XXA Strain of muscle, fascia and tendon at neck level, initial encounter (principal); I10 Essential (primary) hypertension; E11.9 Type 2 diabetes mellitus without complications; J45.909 Unspecified asthma, uncomplicated; R51 Headache; X58.XXXA Exposure to other specified factors, initial encounter; Y92.9 Unspecified place or not applicable; Z79.82 Long term (current) use of aspirin; Z79.84 Long term (current) use of oral hypoglycemic drugs
CPT/HCPCS: 36415; 70450; 72125; 80048; 84484; 85025; 99284-25